=== PATIENT | male | born 1995 | race Caucasian/White ===

== ENCOUNTER 2019-09-10 08:49 | Emergency (ER) | payer OTHER ==
[2019-09-10 08:55] VITALS: BP 130/87; PULSE 95; RESP 18; TEMP 97.8
[2019-09-10] MEDS ORDERED: DEXAMETHASONE 4 MG TAB PO STA (09:08)
--- NOTE | 2019-09-10 09:11 | ED ---
ENT HPI - General Chief complaint: ENT Stated complaint: sore throat Time Seen by Provider: 09/10/19 08:57 Source: patient Mode of arrival: ambulatory Limitations: no limitations - History of Present Illness Initial comments: 24-year-old male presented emergency department for evaluation of sore throat x5 day. Patient states he has had sore throat since Sunday. He stated this is painful to swallow. Patient states that he also had 2 episodes of vomiting on Sunday night Sunday morning he states this has subsided. Denies any additional episodes. Patient admit states he has had loose stools but eating and drinking. Denies difficulty breathing or swallowing. Patient admits to chills denies recording fever. Patient denies neck stiffness, photophobia, rash, urinary changes, CP, SOB, abdominal pain or any other symptoms. Remaining ROS (-). Upon arrival patient appears well there is no signs of acute distress. - Related Data Previous Rx's Medication Instructions Recorded Amoxicillin 500 mg PO BID 10 Days #20 capsule 09/10/19 Allergies Allergy/AdvReac Type Severity Reaction Status Date / Time No Known Allergies Allergy Verified 09/10/19 09:03 Review of Systems ROS Statement: Those systems with pertinent positive or pertinent negative responses have been documented in the HPI. ROS Other: All systems not noted in ROS Statement are negative. Past Medical History Past Medical History: No Reported History History of Any Multi-Drug Resistant Organisms: None Reported Past Surgical History: No Surgical Hx Reported Past Psychological History: No Psychological Hx Reported Smoking Status: Current every day smoker Past Alcohol Use History: None Reported Past Drug Use History: Marijuana General Exam - General Exam Comments Initial Comments: General: The patient is awake and alert, in no distress, and does not appear acutely ill. Eye: +3 mm pupils are equal, round and reactive to light, extra-ocular movements are intact. No nystagmus. There is normal conjunctiva bilaterally. No signs of icterus. No photophobia Ears, nose, mouth and throat: There are moist mucous membranes and no oral lesions. Oropharynx was erythematous with tonsillar enlargement and exudates.. Uvula midline. Tympanic membranes are not erythematous or is no effusions bulging or retraction. No tenderness to palpation of the mastoid. No anterior cervical lymphadenopathy. Rhinorrhea, clear and bilateral nares. No tripoding, no drooling. Neck: The neck is supple, there is no tenderness or JVD. No nuchal rigidity nega Cardiovascular: There is a regular rate and rhythm. No murmur, rub or gallop is appreciated. Respiratory: Lungs are clear to auscultation, respirations are non-labored, breath sounds are equal. No wheezes, stridor, rales, or rhonchi. No retractions or abdominal breathing. Gastrointestinal: Soft, non-distended, non-tender abdomen without masses or organomegaly noted. There is no rebound or guarding present. Bowel sounds are unremarkable. Musculoskeletal: Normal ROM, no tenderness. Strength 5/5. Sensation intact. Radial pulses equal bilaterally 2+. Neurological: A&O x 3. CN II-XII intact grossly, There are no obvious motor or sensory deficits. Coordination appears grossly intact. Speech appears normal, no muffling. Skin: Skin is warm and dry and no rashes or lesions are noted. No extremity edema Psychiatric: Cooperative Limitations: no limitations Course Vital Signs 09/10/19 08:52 Temperature 97.8 F Pulse Rate 95 Respiratory 18 Rate Blood Pressure 130/87 O2 Sat by Pulse 98 Oximetry Medical Decision Making - Medical Decision Making 24-year-old male presented emergency department for evaluation of sore throat, hx of vomiting. No abdominal pain, abdominal exam benign. No clinical signs of dehydration. Vital signs stable. Patient has findings on oropharynx exam concerning for strep pharngitis. Patient will be discharged with rx for amoxicillin. Given decadron in ER. Return parameters were discussed case discussed attending provider and patient was discharged appearing well Disposition Clinical Impression: Pharyngitis, Hx of vomiting, Hx of diarrhea Disposition: HOME SELF-CARE Condition: Good Instructions (If sedation given, give patient instructions): Strep Throat (ED) Additional Instructions: Please use medication as discussed. Please follow-up with family doctor in the next 2 days. Please return to emergency room if the symptoms increase or worsen or for any other concerns. Prescriptions: Amoxicillin 500 mg PO BID 10 Days #20 capsule Is patient prescribed a controlled substance at d/c from ED?: No Referrals: None,Stated [Primary Care Provider] - 1-2 days [facility]-2 days Time of Disposition: 09:10
== END 2019-09-10 09:13 | disposition home or self-care (01) ==
LOC: EC 08:49
DX: J02.9 Acute pharyngitis, unspecified (principal); Z87.19 Personal history of other diseases of the digestive system; F17.200 Nicotine dependence, unspecified, uncomplicated
CPT/HCPCS: 99282; J8540

== ENCOUNTER 2019-10-07 08:49 | Emergency (ER) | payer OTHER ==
[2019-10-07 08:55] VITALS: BP 130/75; PULSE 95; RESP 18; TEMP 97.5
--- NOTE | 2019-10-07 09:56 | ED ---
ENT HPI - General Chief complaint: ENT Stated complaint: bilat ear pain Time Seen by Provider: 10/07/19 08:49 Source: patient, family, RN notes reviewed Mode of arrival: ambulatory Limitations: no limitations - History of Present Illness Initial comments: 23-year-old male presents emergency Department chief complaint bilateral ear pain. Patient states it started right now moved to left states that his cold is ears feel plugged. He has been using smoker, eardrops. Patient states she's had a history of wax buildup. Patient reports no fever, chills, sinus congestion, headache, dizziness, sore throat, cough or chest congestion. - Related Data Previous Rx's Medication Instructions Recorded Amoxicillin 500 mg PO BID 10 Days #20 capsule 09/10/19 Allergies Allergy/AdvReac Type Severity Reaction Status Date / Time No Known Allergies Allergy Verified 10/07/19 08:55 Review of Systems ROS Statement: Those systems with pertinent positive or pertinent negative responses have been documented in the HPI. ROS Other: All systems not noted in ROS Statement are negative. Past Medical History Past Medical History: No Reported History History of Any Multi-Drug Resistant Organisms: None Reported Past Surgical History: No Surgical Hx Reported Past Psychological History: No Psychological Hx Reported Smoking Status: Current every day smoker Past Alcohol Use History: None Reported Past Drug Use History: Marijuana General Exam General appearance: alert, in no apparent distress Head exam: Present: atraumatic, normocephalic, normal inspection Eye exam: Present: normal appearance, PERRL, EOMI. Absent: scleral icterus, conjunctival injection, periorbital swelling ENT exam: Present: mucous membranes moist. Absent: normal oropharynx, TM's normal bilaterally, normal external ear exam (Cerumen impaction bilateral) Neck exam: Present: normal inspection, full ROM. Absent: tenderness, meningismus, lymphadenopathy Respiratory exam: Present: normal lung sounds bilaterally. Absent: respiratory distress, wheezes, rales, rhonchi, stridor Cardiovascular Exam: Present: regular rate, normal rhythm, normal heart sounds. Absent: systolic murmur, diastolic murmur, rubs, gallop, clicks Course Vital Signs 10/07/19 08:51 Temperature 97.5 F L Pulse Rate 95 Respiratory 18 Rate Blood Pressure 130/75 O2 Sat by Pulse 98 Oximetry Procedures - Ear Wax Removal Both Ears Cerumenolytic Used: 5-10% Sodium Bicarb solution Ear Canal Irrigated by: RN Ear Canal Irrigated With: warm saline using syringe/angiocath Results: Re-examined: some cerumen remains TM Visible: TM(s) intact, normal appearance Ear Canal: atraumatic Patient Tolerated Procedure: well Complications: no problems Medical Decision Making - Medical Decision Making Patient cerumen impaction was irrigated, patient feels improved. Patient will be discharged return parameters were discussed. Disposition Clinical Impression: Impacted cerumen of both ears, Otalgia, left ear Disposition: HOME SELF-CARE Condition: Stable Instructions (If sedation given, give patient instructions): Earache (ED) Additional Instructions: Please return to the Emergency Department if symptoms worsen or any other concerns. Is patient prescribed a controlled substance at d/c from ED?: No Referrals: None,Stated [Primary Care Provider] - 1-2 days Time of Disposition: 09:59
== END 2019-10-07 10:17 | disposition home or self-care (01) ==
LOC: EC 08:49
DX: H61.23 Impacted cerumen, bilateral (principal); F17.200 Nicotine dependence, unspecified, uncomplicated
CPT/HCPCS: 69209; 99282